=== PATIENT | female | born 1950 | race Caucasian/White ===

== ENCOUNTER 2024-04-11 17:50 | Inpatient (IN) | payer MEDICARE, MEDICAID ==
[~2024-04-11] VITALS: Ht 160 cm; Wt 50.0 kg
[~2024-04-11 17:50] MED LIST: ADVAIR DISK1 INH; ADVAIR DISK2 IN; DICYCLOMINE HCL20 MG PO; DIPHEN/ATROP2.5 MG PO; DOXYCYCLINE100 MG; DOXYCYCLINE100 MG PO; K-TAB20 MEQ; K-TAB20 MEQ PO; LASIX 20 MG TAB20 MG PO; LEXAPRO20 MG PO; LORTAB 5/3255 MG PO; MECLIZINE12.5 M1 PO; MEDDOSEPAK PO; MELOXICAM15 MG PO; METOCLOPRAMIDE10 MG PO; MYAMBUTOL400 MG PO; NORVASC10 M1 PO; ONDANSETRON HCL8 MG PO; PERCOCET 5/321 COMBO PO; PERTZYE; PREDNISONE10 M2; PROAIR DIG108 MCG/AC; REGLAN10 MG PO; RIFAMPIN150 MG PO; ROPINIROLE2 MG PO; SINGULAIR10 MG PO; SOMA350 MG PO; TEMAZEPAM30 MG PO; TIZANIDINE2 MG PO; TOPAMAX100 M1; TYLENOL # 31 TA1 PO; VIBRAMYCIN100 M2 PO; VITAMIN D3400 UNI2 PO; XYZAL ALLERGY 245 MG PO; ZITHROMAX250 MG PO; [UNRECOGNIZED DRUG - OTHER] IN
--- NOTE | 2024-04-11 17:50 | NUR ---
PT TO ER ROOM 1 WITH STEADY GAIT
[2024-04-11] MEDS ORDERED: IPRATROPIUM-Albuterol 0.5MG-2.5MG/3 ML NEB ONE ×2 (18:15)
[2024-04-11] MEDS ORDERED: AZITHROMYCIN 250 MG/TAB PO ONE (18:15)
[2024-04-11] MEDS ORDERED: methylPREDNISolone SODIUM SUCC 125 MG/2 ML SDV IV ONE (18:15)
[2024-04-11 18:33] LABS: BASO% 0.4 % (0-3); EOS% 0.6 % (0-8); HEMATOCRIT 36.7 % (37.0-47.0); HEMOGLOBIN 11.5 g/dl (12.0-16.0); IMMATURE GRANULOCYTES 0.5 % (0.0-5.0); LYMPH% 33.1 % (15-41); MEAN CELL VOLUME 94.1 fL CALC (80.0-100.0); MEAN CORPUSCULAR HGB 29.5 pG CALC (26.0-32.0); MEAN CORPUSCULAR HGB CONC 31.3 g/dL CAL (32.0-36.0); MONO% 9.1 % (2-13); NEUT# 5.33 thou/uL (2.00-7.15); NEUT% 56.3 % (42-76); RED BLOOD COUNT 3.9 mill/uL (4.20-5.60); RED CELL DISTRI WIDTH 14.4 % (11.5-15.5)
[2024-04-11 18:44] LABS: ALBUMIN 3.8 g/dL (3.2-5.0); ALKALINE PHOSPHATASE 267 u/l (38-126); ANION GAP 13 (6-22 (CALC)); BILIRUBIN, TOTAL 0.7 mg/dL (0.02-1.3); BUN 34 mg/dL (8-23); BUN/CREATININE RATIO 26 (12-20 (CALC)); CARBON DIOXIDE 24 mmol/l (22-30); CHLORIDE 102 mmol/l (95-108); CREATININE 1.3 mg/dL (0.5-1.0); ESTIMATED GFR 43 ML/MIN (>=90 (CALC)); POTASSIUM 3.4 mmol/l (3.5-5.1); SGOT/AST 50 u/l (9-36); SODIUM 136 mmol/l (137-146)
[2024-04-11] MEDS ORDERED: OSELTAMIVIR PHOSPHATE 75 MG/TAB CAP PO ONE (18:50)
[2024-04-11] MEDS ORDERED: MAGNESIUM HYDROXIDE 30 ML UDC PO PRN (19:55)
[2024-04-11] MEDS ORDERED: Zaleplon 5 MG/CAP PO PRN (19:55)
[2024-04-11] MEDS ORDERED: ACETAMINOPHEN 325 MG/TAB PO PRN (19:55)
[2024-04-11] MEDS ORDERED: traMADol HCL 50 MG/TAB PO PRN (20:00)
[2024-04-11] MEDS ORDERED: SODIUM CHLORIDE 0.9% 1,000 ML IV SCH (20:00)
[2024-04-11] MEDS ORDERED: CLARIFY DOSE PO PRN (20:25)
[2024-04-11] MEDS ORDERED: OSELTAMIVIR PHOSPHATE 75 MG/TAB CAP PO SCH (21:00)
[2024-04-11] MEDS ORDERED: ENOXAPARIN SODIUM 40 MG/0.4 ML SYR SC SCH (21:00)
[2024-04-11] MEDS ORDERED: TOPROL XL50 MG PO (22:16)
[2024-04-11] MEDS ORDERED: TOPAMAX100 MG PO (22:22)
[2024-04-11] MEDS ORDERED: HYDROCHLOROT25 MG PO (22:28)
[2024-04-11] MEDS ORDERED: GABAPENTIN300 M2 PO ×2 (22:29→22:30)
[2024-04-11] MEDS ORDERED: [UNRECOGNIZED DRUG - CODE] PO (22:33)
[2024-04-11] MEDS ORDERED: ALBUTEROL SULFATE 2.5 MG VIAL NEB SCH (23:00)
[2024-04-12] MEDS ORDERED: SODIUM CHLORIDE 0.9% 50 ML IV ONE (00:31)
--- NOTE | 2024-04-12 01:00 | NUR ---
RECEIVED SHIFT REPORT FROM SILVINO
--- NOTE | 2024-04-12 01:10 | NUR ---
SPOKE WITH Pattie KAMARA. GABE ARREAGA AT THIS TIME
--- NOTE | 2024-04-12 02:05 | NUR ---
ATTEMPTED TO CALL REPORT. WILL CALL BACK.
--- NOTE | 2024-04-12 02:21 | NUR ---
REPORT TO WENDIE/
--- NOTE | 2024-04-12 02:55 | NUR ---
TO FLOOR VIA W/C WITH O2. FAMILY MEMBER WITH PT.
--- NOTE | 2024-04-12 03:00 | NUR ---
PATIENT CAME IN FROM ER AT 0242. BED SIDE ASSESSMENT COMPLETE. EYES PERRL 3MM, BRISK REACTIVE TO LIGHT. HEART SOUNDS S1&S2. LUNG SOUNDS DIMINISHED. NON PRODUCTIVE COUGH. BOWEL SOUNDS PRESENT IN ALL 4 QUADRENTS. PATIENT OBSERVED TO HAVE PITTING EDEMA TO LOWER LEGS BILATERAL. PERIPHERAL PULSES STRONG AND EQUAL. SAFTY PRECAUTIONS IN PLACE. BED AT LOWEST POSITION. CALL LIGHT WITH IN REACH.
[2024-04-12 03:01] VITALS: BP 139/76
--- NOTE | 2024-04-12 04:12 | NUR ---
AP[place] REPORT RECEIVED FROM SILVION
--- NOTE | 2024-04-12 04:12 | NUR ---
PATIENT OBSERVED TO BE RESTING IN BED WATCHING TV. O2 VIA NC AT 2L, UNLABORED RESP NO VISUAL SIGNS OF DISTRESS. SAFTY PRECAUTIONS IN PLACE. BED AT LOWEST POSITION. CALL LIGHT WITH IN REACH.
[2024-04-12 05:21] LABS: ALBUMIN 3.1 g/dL (3.2-5.0); POTASSIUM 3.9 mmol/l (3.5-5.1); TOTAL PROTEIN 5.8 g/dL (6.3-8.2)
[2024-04-12 05:23] LABS: BASO% 0.4 % (0-3); HEMATOCRIT 35.2 % (37.0-47.0); IMMATURE GRANULOCYTES 0.5 % (0.0-5.0); MEAN CELL VOLUME 95.9 fL CALC (80.0-100.0); MEAN CORPUSCULAR HGB CONC 31.3 g/dL CAL (32.0-36.0); MONO% 1.4 % (2-13); NEUT# 6.66 thou/uL (2.00-7.15); NEUT% 83.4 % (42-76); RED BLOOD COUNT 3.67 mill/uL (4.20-5.60); RED CELL DISTRI WIDTH 14.4 % (11.5-15.5)
[2024-04-12 05:27] LABS: CREATININE 1.1 mg/dL (0.5-1.0)
[2024-04-12 05:30] LABS: BILIRUBIN, TOTAL 0.2 mg/dL (0.02-1.3)
[2024-04-12 05:51] LABS: LYMPH% 14.3 % (15-41)
[2024-04-12 06:45] VITALS: BP 137/77
--- NOTE | 2024-04-12 07:00 | NUR ---
PT LAYING IN BED RESTING WITH EYES CLOSED, AROUSES EASILY TO VERBAL STIMULI, PT IS A&O X3, PUPILS PERRL, RESP. EVEN AND UNLABORED, LUNG SOUNDS CLEAR, ABD DISTENDED AND SOFT WITH ACTIVE BOWEL SOUNDS, NORMAL S1 S2 HEART SOUNDS, STRONG RADIAL PULSES, WEAK PEDAL PULSES, 24G RFA IV WITH FLUIDS INFUSING AT PRESCRIBED RATE, SAFETY MEASURES REINFORCED, CALL CARLISLE WITHIN REACH
[2024-04-12] MEDS ORDERED: OSELTAMIVIR PHOSPHATE 30 MG/CAP PO SCH (09:00)
[2024-04-12] MEDS ORDERED: methylPREDNISolone Sod Succ 40 MG/ML SDV IV SCH (10:00)
--- NOTE | 2024-04-12 12:00 | NUR ---
PT SITTING UP IN BED EATING LUNCH THAT HER VISITOR BROUGHT, PT DENIES ANY NEEDS AT THIS TIME, CALL CARLISLE WITHIN REACH
[2024-04-12 15:18] VITALS: BP 130/77
--- NOTE | 2024-04-12 16:00 | NUR ---
PT RESTING WITH EYES CLOSED, NO S/S OF DISTRESS AT THIS TIME, VISITOR AT BEDSIDE, CALL CARLISLE WITHIN REACH
[2024-04-12 18:46] VITALS: BP 146/76
--- NOTE | 2024-04-12 20:00 | NUR ---
RECEIVED REPORT FROM NURSE ADELE, PATIENT RESTING IN BED, ON ISOLATION. PATIENT ALERT ORIENTEDX 4, ABLE TO MAKE NEEDS KNONW, IV ON RFA G 24 NS @ 80 CC/HR INFUSING WELL, ON O2 @ 2LPM VIANC, EXERTIONAL DYSPNEA NOTED, WHEEZING NOTED ON LEFT LUNG FIELD, CALL LIGHT IN REACHED.
[2024-04-12] MEDS ORDERED: AZITHROMYCIN 500 MG/VIAL SDV IV SCH (21:00)
[2024-04-12] MEDS ORDERED: AZITHROMYCIN 500 MG in SODIUM CHLORIDE 0.9% 250 ML IV SCH (21:00)
--- NOTE | 2024-04-13 00:30 | NUR ---
RESPIRATORY THERAPIST IN ROOM, PATIENT DENIES PAIN AT THSI TIME,EXERTIONAL DYSPNEA NOTED, CALL LIGHT IN REACHED.
[2024-04-13 04:48] VITALS: BP 146/85
--- NOTE | 2024-04-13 05:21 | NUR ---
PATIENT BROUGHT DOWN FOR CXR, PATIENT BACK IN BED, HOOKED ON O2 @ 2LPM VIA NC.
[2024-04-13 05:40] LABS: BASO% 0.2 % (0-3); HEMATOCRIT 30.1 % (37.0-47.0); HEMOGLOBIN 9.2 g/dl (12.0-16.0); IMMATURE GRANULOCYTES 1.2 % (0.0-5.0); LYMPH% 20.1 % (15-41); MEAN CELL VOLUME 95.6 fL CALC (80.0-100.0); MEAN CORPUSCULAR HGB 29.2 pG CALC (26.0-32.0); MEAN CORPUSCULAR HGB CONC 30.6 g/dL CAL (32.0-36.0); NEUT# 4.83 thou/uL (2.00-7.15); NEUT% 74.5 % (42-76); RED BLOOD COUNT 3.15 mill/uL (4.20-5.60); RED CELL DISTRI WIDTH 14.5 % (11.5-15.5)
[2024-04-13 06:04] LABS: ALBUMIN 2.7 g/dL (3.2-5.0); BILIRUBIN, TOTAL 0.2 mg/dL (0.02-1.3); CREATININE 0.9 mg/dL (0.5-1.0); POTASSIUM 3.9 mmol/l (3.5-5.1); TOTAL PROTEIN 5.3 g/dL (6.3-8.2)
--- NOTE | 2024-04-13 07:00 | NUR ---
SHIFT CHANGE REPORT, PT SLEEPING BUT AWAKENS TO VERBAL STIMULI, ORIENTED TO PLACE AND PERSON, NO C/O DISCOMFORT AT THIS TIME, O2 @ 2L VIA NC IN PLACE,IVF INFUSING, CALL CARLISLE IN REACH AND BED LOCKED IN LOWEST POSITION.
--- NOTE | 2024-04-13 07:47 | NUR ---
SPOUSE JUST REPORTED PT HAS BEEN LETHARGIC WITH MILD CONFUSION FOR THE PAST WEEK, INQUIRING WHETHER THERE IS A BLOOD TEST TO DIAGNOSE DIMENTIA AND WANTS TO SPEAK MEDICALL STAFF, INFORMED MEDICAL STAFF WILL BE AVAILABLE LATER.
[2024-04-13 08:39] VITALS: BP 152/74
--- NOTE | 2024-04-13 10:27 | NUR ---
BEING TRANSPORTED OFF UNIT AT THIS TIME TO CT.
--- NOTE | 2024-04-13 11:35 | NUR ---
BACK TO ROOM AND SETTLED IN BED, CALL CARLISLE PLACED IN REACH.
[2024-04-13] MEDS ORDERED: AZTREONAM 2 GM VIAL IV SCH (14:00)
[2024-04-13] MEDS ORDERED: AZTREONAM 2 GM in SODIUM CHLORIDE 0.9% 100 ML IV SCH (14:00)
--- NOTE | 2024-04-13 16:00 | NUR ---
STABLE CONDITION, ALL NEEDS ADDRESSED.
[2024-04-13 16:52] VITALS: BP 138/88
[2024-04-13 19:48] VITALS: BP 135/69
--- NOTE | 2024-04-14 01:10 | NUR ---
PT WAS REQUESTING MEDICATION FOR PAIN STATING ITS HER SCIATIC NERVE AND ALSO C/O PAIN TO LEFT SIDE IF NECK. PAIN MEDICATION WAS ADMINISTERED AND ENCOURAGED PT TO REPOSITION TO HELP WITH NECK DISCOMFORT. CALL LIGHT WITHIN REACH AND SAFETY PRECAUTIONS IN PLACE.
--- NOTE | 2024-04-14 04:01 | NUR ---
PT LAYING IN BED SEMI FOWLERS, NASAL CANNULA IN PLACE. PT RESTING COMFORTABLY AT THIS TIME. NO S/S OF DISTRESS. CALL LIGHT WITHIN REACH AND SAFETY PRECAUTIONS IN PLACE.
[2024-04-14 04:51] VITALS: BP 129/73
[2024-04-14 05:09] LABS: BASO% 0.1 % (0-3); HEMATOCRIT 30.7 % (37.0-47.0); HEMOGLOBIN 9.5 g/dl (12.0-16.0); IMMATURE GRANULOCYTES 0.5 % (0.0-5.0); LYMPH% 15.2 % (15-41); MEAN CELL VOLUME 97.2 fL CALC (80.0-100.0); MEAN CORPUSCULAR HGB 30.1 pG CALC (26.0-32.0); MEAN CORPUSCULAR HGB CONC 30.9 g/dL CAL (32.0-36.0); MONO% 2.2 % (2-13); NEUT# 6.47 thou/uL (2.00-7.15); RED BLOOD COUNT 3.16 mill/uL (4.20-5.60); RED CELL DISTRI WIDTH 14.7 % (11.5-15.5)
[2024-04-14 05:20] LABS: ALBUMIN 2.8 g/dL (3.2-5.0); BILIRUBIN, TOTAL 0.2 mg/dL (0.02-1.3); CREATININE 0.7 mg/dL (0.5-1.0); MAGNESIUM 1.9 mg/dL (1.6-2.3); TOTAL PROTEIN 5.4 g/dL (6.3-8.2)
--- NOTE | 2024-04-14 08:06 | NUR ---
PT IS AOX4, RESPIRATIONS ARE LABORED AT REST ON 2L O2, LUNGS SOUND WHEEZING THROUGHOUT, BOWEL SOUNDS ARE ACTIVE, PEDAL PULSES ARE PALPABLE TO TOUCH, PT REPORTS ACHING PAIN "ALL OVER" A 7 ON A 0-10 PAIN SCALE.
[2024-04-14 08:50] VITALS: BP 127/79
[2024-04-14] MEDS ORDERED: GUAIFENESIN 600 MG/TAB PO SCH (11:00)
[2024-04-14 16:28] VITALS: BP 144/83
[2024-04-14 19:10] VITALS: BP 152/82
--- NOTE | 2024-04-14 20:00 | NUR ---
RECEIVED REPORT FROM DAYSHIFT NURSE. PT NOTED SITTING UP FOLWERS IN BED, VISITOR AT BEDSIDE. PT IS A/OX3, NASAL CANNULA IN PLACE. PT DENIES ANY N/V/P AT THIS TIME. NURSING ASSESSMENT COMPLETED, IV SITE APPEARS HEALTHY AND INTACT, FLUSHES W/O DIFFICULTY. EDUCATED PT ON PLAN OF CARE AND MED SCHEDULE. VSS. NO S/S OF DISTRESS. CALL LIGHT WITHIN REACH AND SAFETY PRECAUTIONS IN PLACE.
[2024-04-14] MEDS ORDERED: GUAIFENESIN 200 MG/10 ML UDC PO PRN (22:25)
--- NOTE | 2024-04-15 00:28 | NUR ---
PT LAYING IN BED SEMI FOWELRS, RESTING COMFORTBALY WITH EYES CLOSED. NO S/S OF DISTRESS. CALL LIGHT WITHIN REACH AND SAFETY PRECAUTIONS IN PLACE.
[2024-04-15 04:04] VITALS: BP 148/77
[2024-04-15 06:20] LABS: BASO% 0.1 % (0-3); HEMATOCRIT 32.3 % (37.0-47.0); HEMOGLOBIN 10.2 g/dl (12.0-16.0); IMMATURE GRANULOCYTES 0.3 % (0.0-5.0); LYMPH% 7.2 % (15-41); MEAN CELL VOLUME 94.7 fL CALC (80.0-100.0); MEAN CORPUSCULAR HGB 29.9 pG CALC (26.0-32.0); MEAN CORPUSCULAR HGB CONC 31.6 g/dL CAL (32.0-36.0); MONO% 3.2 % (2-13); NEUT# 11.27 thou/uL (2.00-7.15); NEUT% 89.2 % (42-76); RED BLOOD COUNT 3.41 mill/uL (4.20-5.60); RED CELL DISTRI WIDTH 14.4 % (11.5-15.5)
[2024-04-15 06:38] LABS: ALBUMIN 2.9 g/dL (3.2-5.0); BILIRUBIN, TOTAL 0.2 mg/dL (0.02-1.3); CREATININE 0.6 mg/dL (0.5-1.0); MAGNESIUM 1.8 mg/dL (1.6-2.3); TOTAL PROTEIN 5.6 g/dL (6.3-8.2)
[2024-04-15 07:08] VITALS: BP 154/96
[2024-04-15 15:05] VITALS: BP 167/93
[2024-04-15 18:27] VITALS: BP 147/83
--- NOTE | 2024-04-15 18:32 | NUR ---
Patient continues on 2L N/C. No shortness of breath noted. Continues antibiotics with no adverse reactions noted.
[2024-04-15 19:01] VITALS: BP 147/83
--- NOTE | 2024-04-15 20:00 | NUR ---
RECEIVED REPORT FROM DAY NURSE PATIENT REMAINS ON 3LPM VIA NC, BREATHING SHALLOW, WHEEZING NOTED ON RT LUNG FIELD AND COARSE ON LEFT, IV PATENT FLUSHES WELL 22 LAC SALINE LOCK. NOT IN DISTRESS, ISOLATION IN PLACED, STAYS IN ROOM, CALL LIGHT WITHIN REACHED,
[2024-04-16] VITALS (7 sets, daily range): BP systolic 148–167; BP diastolic 79–102
--- NOTE | 2024-04-16 | NUR ---
PATIENT RESTING IN BED, REMAINS ON O2 @ 3LPM VIA NC, NOT IN DISTRESS, IN ROOM, CALL LIGHT WITHIN REACHED.
--- NOTE | 2024-04-16 03:37 | NUR ---
PATIENT RESTING IN BED, REMAINS ON O2 @ 3LPM VIA NC, NOT IN DISTRESS, IN ROOM, CALL LIGHT WITHIN REACHED.
[2024-04-16 05:36] LABS: ALBUMIN 3.1 g/dL (3.2-5.0); CREATININE 0.7 mg/dL (0.5-1.0); MAGNESIUM 2.1 mg/dL (1.6-2.3); POTASSIUM 4.2 mmol/l (3.5-5.1); TOTAL PROTEIN 5.8 g/dL (6.3-8.2)
[2024-04-16 05:40] LABS: BILIRUBIN, TOTAL 0.3 mg/dL (0.02-1.3)
[2024-04-16 05:44] LABS: BASO% 0.1 % (0-3); HEMATOCRIT 34.4 % (37.0-47.0); HEMOGLOBIN 10.9 g/dl (12.0-16.0); IMMATURE GRANULOCYTES 0.6 % (0.0-5.0); LYMPH% 6.8 % (15-41); MEAN CELL VOLUME 94.2 fL CALC (80.0-100.0); MEAN CORPUSCULAR HGB 29.9 pG CALC (26.0-32.0); MEAN CORPUSCULAR HGB CONC 31.7 g/dL CAL (32.0-36.0); MONO% 3.5 % (2-13); NEUT# 7.93 thou/uL (2.00-7.15); RED BLOOD COUNT 3.65 mill/uL (4.20-5.60); RED CELL DISTRI WIDTH 14.4 % (11.5-15.5)
--- NOTE | 2024-04-16 07:03 | NUR ---
PATIENT LAYING IN BED WITH EYES CLOSED EASILY AROUSABLE. PATIENT A&OX3 AND ABLE TO MAKE NEEDS KNOWN. PATIENT DENIES AY NEEDS AT THIS TIME.
--- NOTE | 2024-04-16 11:32 | NUR ---
PATIENT LAYING IN BED, WATCHING TV. PATIENT DENIES ANY NEEDS AT THIS TIME.
--- NOTE | 2024-04-16 15:56 | NUR ---
PATIENT LAYING IN BED. PATIENT DENIES ANY NEEDS AT THIS TIME.
--- NOTE | 2024-04-16 20:00 | NUR ---
RECEIVED REPORT FROM NURSE ARTIE, PATIENT RESTING IN BED, ALERT ORIENTED X 4, SALINE LOCK NOTED ON LAC PATENT FLUSHES WILL PATINET WHEEZING NOTED ON RT LUNG FIELD AND LEFT LUNG COARSE, C/O HEADACHE PS 10/20 WILL MEDICATE, CALL LIGHT WITHIN REACHED, ISOLATION IN PLACED.
--- NOTE | 2024-04-17 00:37 | NUR ---
PATIENT RSETING IN BED,REMAINS ON O2 @ 3LPM VIA NC, BREATHING UNLABORED CALL LIGHT WITHIN REACHED.
[2024-04-17 04:25] VITALS: BP 150/86
--- NOTE | 2024-04-17 04:37 | NUR ---
PATIENT RESTING WITH EYES CLOSED, BREATHING EVEN UNLABORED, REMAINS ON O2 @ 3LPM VIA NC, CALL LIGHT WITHIN REACHED.
--- NOTE | 2024-04-17 07:00 | NUR ---
PATIENT LAYING IN BED. PATIENT A&OX4 AND ABLE TO MAKE NEEDS KNOWN. PATIENT DENIES ANY NEEDS AT THIS TIME.
[2024-04-17 07:43] VITALS: BP 136/84
[2024-04-17 07:48] VITALS: BP 136/84
[2024-04-17 11:00] LABS: BASO% 0.1 % (0-3); HEMOGLOBIN 11.2 g/dl (12.0-16.0); IMMATURE GRANULOCYTES 0.7 % (0.0-5.0); LYMPH% 6.6 % (15-41); MEAN CELL VOLUME 94.2 fL CALC (80.0-100.0); MEAN CORPUSCULAR HGB 29.3 pG CALC (26.0-32.0); MEAN CORPUSCULAR HGB CONC 31.1 g/dL CAL (32.0-36.0); MONO% 5.5 % (2-13); NEUT# 9.38 thou/uL (2.00-7.15); NEUT% 87.1 % (42-76); RED BLOOD COUNT 3.82 mill/uL (4.20-5.60); RED CELL DISTRI WIDTH 14.1 % (11.5-15.5)
[2024-04-17 11:16] LABS: CREATININE 0.6 mg/dL (0.5-1.0); POTASSIUM 4.1 mmol/l (3.5-5.1)
--- NOTE | 2024-04-17 11:41 | NUR ---
PATIENT LAYING IN BED. VISITORS AT BEDSIDE. PATIENT DENIES ANY NEEDS AT THIS TIME.
[2024-04-17 16:02] VITALS: BP 130/82
--- NOTE | 2024-04-17 16:09 | NUR ---
PATIENT LAYING IN BED. PATIENT DENIES ANY NEEDS AT THIS TIME.
[2024-04-17 18:32] VITALS: BP 152/84
--- NOTE | 2024-04-17 20:00 | NUR ---
RECEIVED REPORT FROM NURSE ARTIE, PATIENT REMAINS ON O2 @ 3LPM VIA NC, PATIENY ON ISOLATION FOR FLU, COUGHING NOTED YELLOW IN COLOR, PATIENT IV RFA G 22 PATENT FLUSHES WELL, C/O OF HEADACHE PS 10/20 WILL MEDICATE, CALL LIGHT WITHIN REACHED.
--- NOTE | 2024-04-17 23:35 | NUR ---
PATIENT RESTING IN BED, REMAINS ON O2, PATIENT JUST FINISHED BREATHING TREATMENT, NOT IN DISTRESS, CALL LIGHT IN REACHED.
[2024-04-18 04:00] VITALS: BP 135/78; BP 141/81
--- NOTE | 2024-04-18 04:43 | NUR ---
PATIENT STILL C/O HEADACHE PRN PS 7/10, PRN TRAMADOL GIVEN.
[2024-04-18 05:12] LABS: HEMATOCRIT 34.3 % (37.0-47.0); HEMOGLOBIN 10.7 g/dl (12.0-16.0); MEAN CORPUSCULAR HGB 29.3 pG CALC (26.0-32.0); MEAN CORPUSCULAR HGB CONC 31.2 g/dL CAL (32.0-36.0); RED BLOOD COUNT 3.65 mill/uL (4.20-5.60); RED CELL DISTRI WIDTH 14.2 % (11.5-15.5)
[2024-04-18 05:36] LABS: BILIRUBIN, TOTAL 0.3 mg/dL (0.02-1.3); CREATININE 0.7 mg/dL (0.5-1.0); POTASSIUM 4.2 mmol/l (3.5-5.1); TOTAL PROTEIN 5.6 g/dL (6.3-8.2)
--- NOTE | 2024-04-18 05:57 | NUR ---
PATIENT C/O STOMACH UPSET, PATIENT OFFERED SALTINE AND SAMUEL QUAN PATINET STATED RELIEF.
--- NOTE | 2024-04-18 07:19 | NUR ---
PATIENT LAYING IN BED. PATIENT A&OX4 AND ABLE TO MAKE NEEDS KNOWN. PATIENT DENIES ANY NEEDS AT THIS TIME.
[2024-04-18 07:34] VITALS: BP 149/88
--- NOTE | 2024-04-18 11:37 | NUR ---
PATIENT LAYING IN BED. PATIENT DENIES ANY NEEDS AT THIS TIME.
[2024-04-18 14:32] VITALS: BP 143/84
[2024-04-18 15:22] VITALS: BP 143/84
--- NOTE | 2024-04-18 15:35 | NUR ---
PATIENT LAYING IN BED. PATIENT DENIES ANY NEEDS AT THIS TIME.
[2024-04-18 18:44] VITALS: BP 170/96
[2024-04-18 18:45] VITALS: BP 139/80
--- NOTE | 2024-04-18 19:45 | NUR ---
PT RESTING IN BED NO DISTRESS NOTED. PT STATED THAT HER HEAD PAIN IS LESS SINCE TAKEN TRAMADOL. NURSE WILL PROVIDE PT WITH TYLENOL TO SEE IF THAT HELPS PT AGREED. PT ON NC 3L LUNGS SOUNDS WHEEZING. SPOUSE AT BEDSIDE. CALL LIGHT WITHIN REACH. PLAN OF CARE ONGOING.
--- NOTE | 2024-04-19 00:15 | NUR ---
PT SLEEPING BREATHING EVENLY. CALL LIGHT WITHIN REACH. PLAN OF CARE ONGOING.
--- NOTE | 2024-04-19 04:45 | NUR ---
PT RESTING IN BED STILL STANDING HAVING A GONZALES THAT COMES AND GOES. PAIN MEDICATION GIVEN. CALL LIGHT WITHIN REACH. PLAN OF CARE ONGOING.
[2024-04-19 05:22] VITALS: BP 167/89
[2024-04-19 05:39] LABS: BASO% 0.1 % (0-3); HEMATOCRIT 33.2 % (37.0-47.0); HEMOGLOBIN 10.4 g/dl (12.0-16.0); IMMATURE GRANULOCYTES 0.8 % (0.0-5.0); MEAN CELL VOLUME 93.8 fL CALC (80.0-100.0); MEAN CORPUSCULAR HGB 29.4 pG CALC (26.0-32.0); MEAN CORPUSCULAR HGB CONC 31.3 g/dL CAL (32.0-36.0); MONO% 2.5 % (2-13); NEUT# 11.44 thou/uL (2.00-7.15); NEUT% 91.6 % (42-76); RED BLOOD COUNT 3.54 mill/uL (4.20-5.60); RED CELL DISTRI WIDTH 14.4 % (11.5-15.5)
[2024-04-19 06:04] LABS: ALBUMIN 2.9 g/dL (3.2-5.0); BILIRUBIN, TOTAL 0.4 mg/dL (0.02-1.3); CREATININE 0.6 mg/dL (0.5-1.0); TOTAL PROTEIN 5.4 g/dL (6.3-8.2)
[2024-04-19 06:11] LABS: POTASSIUM 5.1 mmol/l (3.5-5.1)
[2024-04-19 07:11] VITALS: BP 140/83
[2024-04-19] MEDS ORDERED: PREDNISONE10 MG PO (09:50)
--- NOTE | 2024-04-19 12:15 | NUR ---
patient a/o x3; patient sitting in bed on the sidde on phone; denied any pain; denied any n/d/v at this time; no complaints; on ; iv site clean and intact saline locked at this time; call light within reach verbalized understanding on how to use, personal items within reach; bedin lowest postion;safety measures in place
--- NOTE | 2024-04-19 13:16 | NUR ---
patient was educated on discharge information,awaiting ride
--- NOTE | 2024-04-19 14:21 | NUR ---
IV site discontinued, cath intact. No edema , no redness, voices no discomfort. Discharge instructions given. Patient verbalizes understanding of same. Discharged in stable condition via Wheelchair to Home with family. All belongings sent with pt.
== END 2024-04-19 14:21 | DRG 177 ==
LOC: ED 17:50 → ED-I 19:40 → ED 20:39 → MS2 20:40
PROVIDERS: Family Medicine; Nurse Practitioner Family; ADMIT Internal Medicine; ATTEND Internal Medicine
DX: J10.08 Influenza due to other identified influenza virus with other specified pneumonia (principal); J96.01 Acute respiratory failure with hypoxia; J15.1 Pneumonia due to Pseudomonas; N17.9 Acute kidney failure, unspecified; J44.0 Chronic obstructive pulmonary disease with (acute) lower respiratory infection; J44.1 Chronic obstructive pulmonary disease with (acute) exacerbation; F41.9 Anxiety disorder, unspecified; I10 Essential (primary) hypertension; M54.30 Sciatica, unspecified side; F32.A Depression, unspecified; Z88.1 Allergy status to other antibiotic agents; Z88.0 Allergy status to penicillin; Z86.11 Personal history of tuberculosis; Z72.0 Tobacco use
CPT/HCPCS: J0456; J0457; J1650